=== PATIENT | female | born 1995 | race Asian ===

== ENCOUNTER 2022-08-29 02:41 | Emergency (ER) | payer MEDICAID ==
[~2022-08-29] VITALS: Ht 160 cm; Wt 75.0 kg
[2022-08-29] MEDS ORDERED: MONT-40 PO (02:57)
[2022-08-29] MEDS ORDERED: BECL10.62 IH (02:57)
[2022-08-29] MEDS ORDERED: ALBU90AE2 PO (02:57)
[2022-08-29 06:17] LABS: COVID AG,FIA SOURCE NASAL SWAB
[2022-08-29] MEDS ORDERED: ALBUTEROL SULFATE HFA 90 MCG/PUFF 8 GM INHALER IH ONE (06:30)
[2022-08-29] MEDS ORDERED: ACETAMINOPHEN 500 MG TABLET PO ONE (06:30)
[2022-08-29 06:38] LABS: INFLUENZA TYPE A NEGATIVE FOR TYPE A (NEGATIVE); INFLUENZA TYPE B NEGATIVE FOR TYPE B (NEGATIVE)
[2022-08-29 06:45] LABS: RAPID GROUP A STREP NEGATIVE (NEGATIVE)
[2022-08-29] MEDS ORDERED: ONDANSETRON HCL 4 MG TABLET PO ONE (07:00)
[2022-08-29] MEDS ORDERED: ONDA-104 PO (07:15)
[2022-08-29 07:30] VITALS: BP 123/79
== END 2022-08-29 07:44 | disposition home or self-care (01) ==
LOC: EMS 02:46
DX: J06.9 Acute upper respiratory infection, unspecified (principal); J45.909 Unspecified asthma, uncomplicated; Z88.8 Allergy status to other drugs, medicaments and biological substances; Z20.822 Contact with and (suspected) exposure to COVID-19; Z91.013 Allergy to seafood
CPT/HCPCS: 99284; 71045; 87426; 87430; 87804; 94640; Q0162; J3535